=== PATIENT | female | born 1990 | race African-American/Black ===

== ENCOUNTER 2024-03-11 15:01 | Emergency (ER) | payer OTHER, SELFPAY ==
[2024-03-11 15:12] VITALS: BP 144/93; PULSE 90; RESP 16; TEMP 36.4; O2SAT 98; BMI 44.1
--- NOTE | 2024-03-11 15:53 | ED.GENADULT ---
HPI - General Adult <Ching Abdullahi PA-C - Last Filed: 03/11/24 16:15> General Chief complaint: Hypertension Stated complaint: High BP Time Seen by Provider: 03/11/24 15:40 History of Present Illness HPI narrative: Ms. Mo is a pleasant 33-year-old female with a past medical history of hypertension who presents to the emergency department for elevated blood pressure /medication refill. 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 States that while at work she had an ingrown hair on her mons pubis ?burst? which caused some pain. She did not want to tell anybody what had happened however her blood pressure was checked as she was having slight headache as well and her systolic blood pressure was 198 which prompted her ER arrival. Patient is pain-free at this time and states that she thinks the pain from the ingrown hair bursting is what caused her blood pressure spike. Her blood pressure is currently 144/93 in the ER. However patient takes daily amlodipine and hydrochlorothiazide and reports that she forgot to bring her hydrochlorothiazide with her and therefore needs a refill. She is also running low in the amlodipine and would like a refill of that as well. She denies chest pain, shortness of breath, visual disturbance, decreased urination, fevers, chills, nausea, vomiting, abdominal pain. Related Data Previous Rx's Medication Instructions Recorded amlodipine 5 mg tablet 5 mg PO DAILY #30 tabs 03/11/24 hydrochlorothiazide 25 mg tablet 25 mg PO DAILY #30 tabs 03/11/24 Review of Systems <Ching Abdullahi PA-C - Last Filed: 03/11/24 16:15> Review of Systems ROS Unobtainable: All systems reviewed & are unremarkable except as noted in HPI and below Exam <Ching Abdullahi PA-C - Last Filed: 03/11/24 16:15> Narrative Exam Narrative: GENERAL: 33 year old patient appears stated age. Obese paient in no acute distress. HEAD: Atraumatic. Normocephalic. EYES: Extraocular motions intact. No scleral icterus. No injection or drainage. ENT: Nose without bleeding, purulent drainage. Throat without erythema, tonsillar hypertrophy or exudate. Airway patent. NECK: Trachea midline. Cervical ROM intact. CARDIOVASCULAR: Regular rate and rhythm. RESPIRATORY: ?Nonlabored respirations. ?Speaking in clear, full sentences. ?Clear to auscultation. GASTROINTESTINAL: Abdomen soft, non-tender, nondistended. 1cm previously drained abscess/ingrown hair on mons pubis. No surrounding erythema or induration. No fluctuance. EXTREMITIES: No edema or joint tenderness. NEURO: AOx3. ?Clear speech. ?Moves all 4 extremities appropriately. SKIN: No rash or erythema of visible areas Initial Vital Signs Initial Vital Signs: Vital Signs Temperature 97.6 F 03/11/24 15:12 Pulse Rate 90 03/11/24 15:12 Respiratory Rate 16 03/11/24 15:12 Blood Pressure 144/93 H 03/11/24 15:12 Pulse Oximetry 98 03/11/24 15:12 Oxygen Delivery Method Room Air 03/11/24 15:12 <Gypsy Mak DO - Last Filed: 03/13/24 08:25> Initial Vital Signs Initial Vital Signs: Vital Signs Temperature 97.6 F 03/11/24 15:12 Pulse Rate 90 03/11/24 15:12 Respiratory Rate 16 03/11/24 15:12 Blood Pressure 144/93 H 03/11/24 15:12 Pulse Oximetry 98 03/11/24 15:12 Oxygen Delivery Method Room Air 03/11/24 15:12 Course <Ching Abdullahi PA-C - Last Filed: 03/11/24 16:15> Orders Ordered: Discontinued Medications Bacitracin (Bacitracin Oint 0.9 Gm Pckt) 1 applic TOP NOW ONE Stop: 03/11/24 16:02 Last Admin: 03/11/24 16:07 Dose: 1 applic Documented By: ES Vital Signs Vital signs: Vital Signs - 8 hr 03/11/24 15:12 Temperature 97.6 F Pulse Rate 90 Respiratory Rate 16 Blood Pressure 144/93 H Pulse Oximetry 98 Oxygen Delivery Method Room Air <Gypsy Mak DO - Last Filed: 03/13/24 08:25> Orders Ordered: Discontinued Medications Bacitracin (Bacitracin Oint 0.9 Gm Pckt) 1 applic TOP NOW ONE Stop: 03/11/24 16:02 Last Admin: 03/11/24 16:07 Dose: 1 applic Documented By: ES Vital Signs Vital signs: Vital Signs - 8 hr 03/11/24 15:12 Temperature 97.6 F Pulse Rate 90 Respiratory Rate 16 Blood Pressure 144/93 H Pulse Oximetry 98 Oxygen Delivery Method Room Air Medical Decision Making <Ching Abdullahi PA-C - Last Filed: 03/11/24 16:15> [facility] Narrative Medical decision making narrative: 33-year-old female with a past medical history of hypertension and obesity presents to the emergency department for an episode of elevated blood pressure and medication refill. Differential diagnosis includes but is not limited to hypertension, abscess, medication refill, etc. On exam patient is in no acute distress, nontoxic-appearing, blood pressure 144/93. She denies chest pain, shortness of breath, visual disturbance. Asymptomatic hypertension. She had an elevated blood pressure earlier today that she believes was from pain secondary to an ingrown hair ?bursting?. On her mons pubis, she has a very small abscess that spontaneously drained with no surrounding cellulitis. We will apply bacitracin and dressing to this area and advised she keep it clean dry and covered. No indication for antibiotics. Provided her with Hibiclens wash. I will refill her amlodipine and her hydrochlorothiazide. Medications were sent to pharmacy of choice. Patient is stable for discharge and verbalized understanding of all information and is agreeable to the plan. Discharge Plan Departure Patient Disposition: Home Clinical Impression: Elevated blood pressure reading, Medication refill Instructions: DI for High Blood Pressure Activity Restrictions/Additional Instructions: Today you were evaluated for elevated blood pressure. Your blood pressure is 144/93. I have refilled both your home amlodipine and hydrochlorothiazide, they were sent to the [facility] here in [place] Please resume taking this as previously directed by her primary care doctor. Return to the ER if you develop chest pain, shortness of breath, visual disturbance, any other concerns. Please follow up with your primary care doctor within the next 2-3 days for ER follow-up. (If you do not have a PCP you can call [phone]. ?to schedule an appointment with an [facility] Primary Care Provider) IF YOU DEVELOP ANY NEW OR WORSENING SYMPTOMS, RETURN TO THE ER! Please read the attached instructions, they highlight more specific treatments and interventions for you at home. Thank you for letting me participate in your care, Ching Abdullahi PA-C Prescriptions: New amlodipine 5 mg tablet 5 mg PO DAILY Qty: 30 0RF hydrochlorothiazide 25 mg tablet 25 mg PO DAILY Qty: 30 0RF Stand Alone Forms: Patient Portal/API/Survey ED Sign-out <Gypsy Mak DO - Last Filed: 03/13/24 08:25> Cosign ED Attending Cosignature Attestation: I was immediately available in the department for consultation.
[2024-03-11] MEDS: BACITRACIN OINT 0.9 GM PCKT 1 APPLIC TOP (16:07)
--- NOTE | 2024-03-11 16:10 | PC.NURSE ---
Patient was woken up by a headache; known history of hypertension. She said she was popping an abcess in her pubic region which was painful. Her blood pressure taken right after this and she thinks that is why it was high. She forgot her medication for HCTZ at home and needs a refill.
[2024-03-11 16:20] VITALS: BP 142/85; PULSE 82; RESP 18; O2SAT 98
== END 2024-03-11 16:21 | disposition home or self-care (01) ==
PROVIDERS: Emergency Provider Physician Assistant
DX: I10 Essential (primary) hypertension (principal); Z76.0 Encounter for issue of repeat prescription
CPT/HCPCS: 99282